=== PATIENT | female | born 1990 | race Caucasian/White ===

== ENCOUNTER 2017-01-21 21:11 | Emergency (ER) | payer OTHER ==
[2017-01-21 21:20] VITALS: BP 130/83
--- NOTE | 2017-01-21 21:58 | EDM.PDOC ---
ED HPI GENERAL MEDICAL PROBLEM - General Chief Complaint: Upper Extremity Injury/Pain Stated Complaint: Right elbow injury Time Seen by Provider: 01/21/17 21:30 Source of Information: Reports: Patient, RN Notes Reviewed History Limitations: Reports: No Limitations - History of Present Illness INITIAL COMMENTS - FREE TEXT/NARRATIVE: 26 year old female presents to the ED with right elbow pain and swelling. She fell and caught herself with her wrists. She denies hand or wrist pain. She has limited ROM to the elbow due to pain. No numbness or tingling. Injury occurred today. Treatments [employer]: Reports: Other (see below) Other Treatments [employer]: ibuprofen 400 mg Right Elbow Pain Score (Numeric/FACES): 2 - Related Data Allergies Allergy/AdvReac Type Severity Reaction Status Date / Time dr. tee Allergy Airway Uncoded 01/21/17 21:16 Tightness Home Meds: Home Meds . [No Known Home Meds] 01/21/17 [History] Past Medical History - Past Health History Medical/Surgical History: Denies Medical/Surgical History Social & Family History - Tobacco Use Smoking Status *Q: Never Smoker - Recreational Drug Use Recreational Drug Use: No Review of Systems - Review of Systems Review Of Systems: See Below Musculoskeletal: Reports: Joint Pain, Joint Swelling Skin: Reports: No Symptoms Neurological: Reports: No Symptoms. Denies: Numbness, Tingling, Weakness ED EXAM, GENERAL - Physical Exam Exam: See Below Exam Limited By: No Limitations General Appearance: Alert, WD/WN, No Apparent Distress Extremities: Joint Swelling (right elbow ), Limited Range of Motion (right elbow ), Other (no bony point tenderness to right elbow. patient has pain with movement. No deformity or crepitus. Nerovascular status intact. ). No: Increased Warmth, Redness Neurological: Alert, No Motor/Sensory Deficits Skin Exam: Warm, Dry, Intact Course - Vital Signs Last Recorded V/S: Last Vital Signs Temp 97.2 F 01/21/17 21:16 Pulse 82 01/21/17 21:16 Resp BP 130/83 01/21/17 21:16 Pulse Ox 99 01/21/17 21:16 - Orders/Labs/Meds Orders: Active Orders 24 hr Category Date Time Status Elbow Min 3V Rt [CR] Stat Exams 01/21/17 21:33 Ordered - Re-Assessments/Exams Free Text/Narrative Re-Assessment/Exam: Patient is unable to perform full ROM of right elbow. X-rays obtained but are limited due to decreased ROM. No fracture or fat pad sign appreciated. Will place in sling. She was instructed to f/u in clinic next week if not improved. Departure - Departure Time of Disposition: 21:57 Disposition: Home, Self-Care 01 Condition: Good Clinical Impression: Elbow injury Qualifiers: Encounter type: initial encounter Laterality: right Qualified Code(s): S59.901A - Unspecified injury of right elbow, initial encounter - Discharge Information Referrals: PCP,Not In Area [Primary Care Provider] - Forms: ED Department Discharge Additional Instructions: Rest, ice and elevate Sling as tolerated Tylenol or Ibuprofen as needed for pain Follow-up with Orthopedic Surgeon next week if not improved. - My Orders Last 24 Hours: My Active Orders 01/21/17 21:33 Elbow Min 3V Rt [CR] Stat - Assessment/Plan Last 24 Hours: My Active Orders 01/21/17 21:33 Elbow Min 3V Rt [CR] Stat
--- NOTE | 2017-01-22 07:03 | CR ---
Right elbow: Four views of the right elbow were obtained. Comparison: No previous study. Small joint effusion is identified. Joint spaces are maintained. No discrete fracture or other bony abnormality is identified. Impression: 1. Small joint effusion. 2. No discrete bony abnormality is identified on right elbow study. Diagnostic code #2
== END 2017-01-21 22:15 | disposition home or self-care (01) ==
LOC: JD.ED 21:11
DX: S59.901A Unspecified injury of right elbow, initial encounter (principal)
CPT/HCPCS: 73080-26-RT; 73080-RT; 99283